=== PATIENT | male | born 1965 | race Caucasian/White ===

== ENCOUNTER 2025-08-04 16:48 | Emergency (ER) | payer OTHER ==
--- NOTE | 2025-08-04 17:57 | ERPHSYRPT ---
- History of Present Illness Time Seen by Provider: 08/04/25 17:56 Source: patient Exam Limitations: no limitations Physician History: 60-year-old male presents to the emergency room with intermittent left testicle pain patient reports he has been having pain for the past week but did not get seen denies any urinary symptoms denies any trauma to his testicle denies any discharge denies any abdominal pain patient is now in ED for further eval Timing/Duration: week(s) (1) Activites at Onset: none Quality: cramping Onset Location: left testicle Pain Radiation: none Severity of Pain-Max: mild Severity of Pain-Current: mild Modifying Factors: Improves With: nothing Associated Symptoms: denies symptoms Allergies/Adverse Reactions: No Known Drug Allergies Allergy (Unverified 08/04/25 17:54) - Review of Systems Constitutional: No Fever, No Chills Eyes: No Symptoms Ears, Nose, & Throat: No Symptoms Respiratory: No Cough, No Dyspnea Cardiac: No Chest Pain, No Edema, No Syncope Abdominal/Gastrointestinal: No Abdominal Pain, No Nausea, No Vomiting, No Diarrhea Genitourinary Symptoms: Testicle Pain, No Dysuria Musculoskeletal: No Back Pain, No Neck Pain Skin: No Rash Neurological: No Dizziness, No Focal Weakness, No Sensory Changes Psychological: No Symptoms Endocrine: No Symptoms All Other Systems: Reviewed and Negative - Nursing Vital Signs Nursing Vital Signs: Initial Vital Signs Temperature 97 F 08/04/25 16:48 Pulse Rate 62 08/04/25 16:48 Respiratory Rate 16 08/04/25 16:48 Blood Pressure 175/102 08/04/25 16:48 O2 Sat by Pulse Oximetry 100 08/04/25 16:48 Pain Scale Pain Intensity 0 - Physical Exam General Appearance: no apparent distress, alert Eye Exam: PERRL/EOMI Ears, Nose, Throat Exam: pharynx normal, moist mucous membranes Neck Exam: normal inspection, supple Respiratory Exam: normal breath sounds, lungs clear Cardiovascular Exam: regular rate/rhythm, No edema Gastrointestinal/Abdomen Exam: soft, No tenderness Male Genital Exam: scrotum tenderness (L) Back Exam: normal inspection, No CVA tenderness Extremity Exam: normal inspection, normal range of motion, No pedal edema Neurologic Exam: alert, oriented x 3, cooperative, sensation nml, No motor deficits Skin Exam: normal color, warm, dry, No rash SpO2 Interpretation: normal - Course Nursing assessment & vital signs reviewed: Yes Ordered Tests: Active Orders 24 hr Category Date Time Status TESTICLE [US] Stat Exams 08/04/25 17:12 Taken UA W/RFX UR CULTURE Stat Lab 08/04/25 17:12 Completed Lab/Rad Data: Laboratory Results 08/04/25 Range/Units 17:12 Urine Color Yellow (Yellow) Urine Appearance Clear (Clear) Urine pH 7.5 (4.6-8.0) Ur Specific [place] <=1.005 (1.005-1.030) Urine Protein Negative (Negative) Urine Glucose (UA) Negative (Negative) mg/dL Urine Ketones Negative (Negative) Urine Blood Negative (Negative) Urine Nitrite Negative (Negative) Urine Bilirubin Negative (Negative) Urine Urobilinogen 0.2 (0.2) mg/dL Ur Leukocyte Esterase Negative (Negative) U Hyaline Cast (Auto) NONE SEEN (0-2) /LPF Urine Microscopic RBC 0-2 (0-5) /HPF Urine Microscopic WBC 0-2 (0-5) /HPF Ur Epithelial Cells None Seen (None Seen) /HPF Urine Bacteria None Seen (None Seen) /HPF Urine Culture Reflexed NO (NO) - Progress Progress Note: 08/04/25 17:57 Will evaluate with ultrasound to rule out for torsion pending urinalysis 08/04/25 18:30 [employer] came by and informed me that the patient's testicular ultrasound showed negative for torsion but does have a left-sided epididymal cyst bilateral varicoceles patient is pending urinalysis 08/04/25 18:39 Has bilateral serous on ultrasound pending urinalysis 08/04/25 18:55 Ultrasound shows varicoceles bilaterally recommended scrotal support NSAIDs for pain avoid prolonged ending patient is epididymal cyst likely a fluid filled cyst patient will be treated recommend urological follow-up and with discharge or straining - Departure Departure Disposition: Home Clinical Impression: Varicocele, Cyst of epididymis Testicular pain Qualifiers: Laterality: left Qualified Code(s): N50.812 - Left testicular pain Condition: Stable Critical Care Time: No Referrals: RUDOLPH CALDERON [Primary Care Provider, [facility]] - Follow up/PCP as directed JADE DUMONT [NON-STAFF PHY W/O PRIVILEGES, UNKNOWN] - Follow up/PCP as directed Instructions: Epididymitis (DC), Varicocele
[2025-08-04 18:01] VITALS: TEMP 97
[2025-08-04 18:09] VITALS: O2SAT 98
[2025-08-04 18:54] LABS: Glucose, Urine Negative (Negative); Protein,Urine Dip Negative (Negative); RBC 0-2 /HPF (0-5); WBC 0-2 /HPF (0-5)
[2025-08-04 19:06] VITALS: BP 174/95; PULSE 59; RESP 16
--- NOTE | 2025-08-05 08:37 | XRAY ---
Indication: Left testicle pain. Two-dimensional testicular sonogram performed. Comparison: None Both testicles are homogeneous in echogenicity with normal color perfusion. Right testicle measures 3.6 x 1.9 x 2.5 cm and left measures 3.3 x 1.7 x 2.5 cm. Left epididymis demonstrates 2 cysts, largest 1.1 cm. Right epididymis sonographically unremarkable. Incidental bilateral varicoceles with Valsalva maneuvering. No suspicious extratesticular mass or hydrocele. Impression: Bilateral varicoceles. Left epididymal cysts. Remaining testicular sonogram is negative. Comment: Preliminary report was given.
== END 2025-08-04 19:07 | disposition home or self-care (01) ==
LOC: ED 16:48
DX: I86.1 Scrotal varices (principal); N50.3 Cyst of epididymis; N50.812 Left testicular pain